=== PATIENT | male | born 1960 | race Caucasian/White ===

== ENCOUNTER 2025-03-02 07:00 | Day surgery (SDC) | payer MEDICARE, OTHER ==
[2025-03-02] MEDS: Tetracaine HCl/PF 0.5% 4 ML Bottle EYEBOTH SCH (06:54)
[2025-03-02] MEDS: Cefuroxime 10 MG/ML SYRINGE EYERT SCH (06:54)
[2025-03-02] MEDS: Lidocaine 1% PF 2 ML SDV INJECT SCH (06:54)
[2025-03-02] MEDS: Polymyxin B/Trimethoprim 10 ML Bottle EYERT SCH (06:55)
[2025-03-02] MEDS: Pilocarpine 4% Ophth Soln 15 ML Bot EYERT SCH (06:55)
[2025-03-02] MEDS: Tropicamide 1% Ophth Soln 3 ML Bottle EYERT SCH (07:28)
== END 2025-03-02 08:42 ==
LOC: JD.SDS 07:00
PROVIDERS: ATTEND Ophthalmology
DX: E11.36 Type 2 diabetes mellitus with diabetic cataract (principal); H25.811 Combined forms of age-related cataract, right eye; H43.813 Vitreous degeneration, bilateral; H21.81 Floppy iris syndrome; H18.413 Arcus senilis, bilateral; H11.153 Pinguecula, bilateral; I10 Essential (primary) hypertension; Z96.1 Presence of intraocular lens; Z79.899 Other long term (current) drug therapy
CPT/HCPCS: 66984; A9270; J0697; J3490